=== PATIENT | female | born 1975 | race Caucasian/White ===

== ENCOUNTER 2016-11-01 07:09 | Emergency (ER) | payer BC, OTHER ==
--- NOTE | 2016-11-01 07:27 | UC ---
Respiratory Complaint HPI - HPI Summary HPI Summary: Two days of sinus pressure, sore throat and last night she lost her voice. Today she can barely talk. - History of Current Complaint Stated Complaint: FEVER SORE THROAT Time Seen by Provider: 11/01/16 07:16 Hx Obtained From: Patient Hx Last Menstrual Period: ~2011 ?: No Onset/Duration: Gradual Onset Timing: Constant Severity Initially: Mild Severity Currently: Moderate Character: Cough: Nonproductive Aggravating Factors: Nothing Alleviating Factors: Nothing Associated Signs And Symptoms: Positive: Fever, URI, Nasal Congestion, Hoarseness, Sinus Discomfort. Negative: Chills, Pleuritic Chest Pain, Wheezing , Hemoptysis, Dizziness, Calf Pain, Calf Swelling, Edema - Allergies/Home Medications Allergies/Adverse Reactions: Allergies Allergy/AdvReac Type Severity Reaction Status Date / Time sun Allergy Intermediate Hives Uncoded 09/05/14 17:45 PMH/Surg Hx/FS Hx/Imm Hx Endocrine History Of: Reports: Diabetes - DIET CONTROLLED Respiratory History Of: Denies: COPD, Asthma - Surgical History Surgical History: Yes Surgery Procedure, Year, and Place: GASTRIC BYPASS, BLADDER SLING, RIGHT ANKLE SURGERY, BUNOINECTOMY, TUBAL LIGATION. LITHOTRIPSY. ablation - Family History Known Family History: Positive: Other - no related laryngitis family history. - Social History Occupation: Employed Full-time Alcohol Use: Rare Substance Use Type: None Smoking Status (MU): Never Smoked Tobacco - Immunization History Most Recent Influenza Vaccination: April 2014 Review of Systems All Other Systems Reviewed And Are Negative: Yes Physical Exam Triage Information Reviewed: Yes Appearance: Well-Appearing - obvious loss of voice and trouble swallowing but non toxic., No Pain Distress, Well-Nourished Vital Signs Reviewed: Yes Eyes: Positive: Conjunctiva Clear. Negative: Conjunctiva Inflamed ENT: Positive: Normal ENT inspection, Hearing grossly normal, Pharyngeal erythema, Nasal congestion, TMs normal. Negative: Nasal drainage, TM bulging, TM dull, TM red, Tonsillar swelling, Tonsillar exudate, Trismus, Muffled/hoarse voice Neck exam: Normal Neck: Positive: Supple, Nontender, No Lymphadenopathy. Negative: Nuchal Rigidity Respiratory: Positive: Chest non-tender, Lungs clear, Normal breath sounds, No respiratory distress, No accessory muscle use. Negative: Respiratory distress, Decreased breath sounds, Accessory muscle use, Crackles, Rhonchi, Stridor, Wheezing Cardiovascular: Positive: RRR, No Murmur, Pulses Normal Abdominal Exam: Normal Abdomen Description: Positive: Nontender, No Organomegaly, Soft Musculoskeletal Exam: Normal Musculoskeletal: Positive: Strength Intact, ROM Intact, No Edema Neurological Exam: Normal Neurological: Positive: Alert, Muscle Tone Normal. Negative: Fatigued Psychological Exam: Normal Skin Exam: Normal Skin: Negative: rashes Respiratory Course/Dx - Differential Dx/Diagnosis Provider Diagnoses: viral laryngitis. Discharge - Discharge Plan Condition: Good Disposition: HOME Patient Education Materials: Laryngitis (ED) Forms: *Work Release Referrals: Agus Reyes MD [Primary Care Provider] - If Needed
[2016-11-01 07:38] VITALS: BP 126/72
== END 2016-11-01 08:00 | disposition home or self-care (01) ==
LOC: UCCORT 07:09
DX: J04.0 Acute laryngitis (principal); R50.9 Fever, unspecified; E11.9 Type 2 diabetes mellitus without complications; Z98.84 Bariatric surgery status
CPT/HCPCS: 99211; G0463

== ENCOUNTER 2018-10-08 10:52 | Emergency (ER) | payer OTHER ==
[2018-10-08 11:40] VITALS: BP 143/84
--- NOTE | 2018-10-08 12:27 | ED ---
Back Pain - HPI Summary HPI Summary: 42 yr old female with the complaint of low back pain. The patient works as an OR nurse, and on 10/05/18 she lifted an OR tray for a spine case. She states she felt pain in her low back with radiation of pain into her bilateral anterior thighs. The patient denies bowel or bladder incontinence. She denies weakness or numbness in the legs. - History of Current Complaint Chief Complaint: UCBackPain Stated Complaint: BACK INJURY - W/C Time Seen by Provider: 10/08/18 11:52 Hx Last Menstrual Period: 2010 Pain Intensity: 0 - Allergies/Home Medications Allergies/Adverse Reactions: Allergies Allergy/AdvReac Type Severity Reaction Status Date / Time sun Allergy Intermediate Hives Uncoded 11/01/16 07:27 Home Medications: Home Medications Acetaminophen [Acetaminophen Extra Strength] 500 mg PO DAILY PRN 10/08/18 [ History Confirmed 10/08/18] Naproxen TAB* [Naprosyn 250 mg TAB*] 220 mg PO Q12H PRN 10/08/18 [History Confirmed 10/08/18] PMH/Surg Hx/FS Hx/Imm Hx Endocrine/Hematology History: Reports: Hx Diabetes - DIET CONTROLLED Respiratory History: Denies: Hx Asthma, Hx Chronic Obstructive Pulmonary Disease (COPD) - Surgical History Surgery Procedure, Year, and Place: GASTRIC BYPASS, BLADDER SLING, RIGHT ANKLE SURGERY, BUNIONECTOMY, TUBAL LIGATION. LITHOTRIPSY. uterine ablation Infectious Disease History: No Infectious Disease History: Denies: Traveled Outside the [place] in Last 30 Days - Family History Known Family History: Positive: Other - no related laryngitis family history. - Social History Occupation: Employed Full-time Alcohol Use: Rare Substance Use Type: Reports: None Smoking Status (MU): Never Smoked Tobacco Review of Systems Constitutional: Negative Positive: Other - back pain Negative: Weakness, Paresthesia, Numbness All Other Systems Reviewed And Are Negative: Yes Physical Exam Triage Information Reviewed: Yes Vital Signs On Initial Exam: Initial Vitals Temp Pulse Resp BP Pulse Ox 98.6 F 69 18 143/84 97 10/08/18 11:32 10/08/18 11:32 10/08/18 11:32 10/08/18 11:32 10/08/18 11:32 Vital Signs Reviewed: Yes Appearance: Positive: Well-Appearing, No Pain Distress Skin: Positive: Warm, Skin Color Reflects Adequate Perfusion Head/Face: Positive: Normal Head/Face Inspection Eyes: Positive: EOMI ENT: Positive: Normal ENT inspection Neck: Positive: Nontender Respiratory/Lung Sounds: Positive: Clear to Auscultation, Breath Sounds Present Cardiovascular: Positive: RRR. Negative: Murmur Abdomen Description: Negative: Distended Musculoskeletal: Positive: Strength/ROM Intact, Other - some midline lumbar spine tenderness. Neurological: Positive: Sensory/Motor Intact, Alert, Oriented to Person Place, Time, CN Intact II-III, Speech Normal Psychiatric: Positive: Normal - Magalis Coma Scale Best Eye Response: 4 - Spontaneous Best Motor Response: 6 - Obeys Commands Best Verbal Response: 5 - Oriented Coma Scale Total: 15 Diagnostics - Vital Signs Vital Signs Temp Pulse Resp BP Pulse Ox 10/08/18 11:32 98.6 F 69 18 143/84 97 - Laboratory Lab Statement: Any lab studies that have been ordered have been reviewed, and results considered in the medical decision making process. - Radiology lumbar spine Radiology Interpretation Completed By: Radiologist - NATE, nephrolithiasis left Back Pain Course/Dx - Course Course Of Treatment: 42 yr old with low back pain. - Diagnoses Provider Diagnoses: Degenerative disc disease, lumbar, Hypertension Discharge - Sign-Out/Discharge Documenting (check all that apply): Patient Departure All imaging exams completed and their final reports reviewed: Yes - Discharge Plan Condition: Good Disposition: HOME Prescriptions: Cyclobenzaprine TAB* [Flexeril 10 MG TAB*] 10 mg PO BID PRN #14 tab PRN Reason: Spasms Patient Education Materials: Arthritis (ED) Forms: *Work Release Referrals: Rik Garza MD [Primary Care Provider] - Kael Mccray MD [Medical Doctor] - 2 Days - Billing Disposition and Condition Condition: GOOD Disposition: Home
== END 2018-10-08 13:00 | disposition home or self-care (01) ==
LOC: UCCORT 10:52
DX: M51.36 Other intervertebral disc degeneration, lumbar region (principal); I10 Essential (primary) hypertension; E11.9 Type 2 diabetes mellitus without complications; Z91.09 Other allergy status, other than to drugs and biological substances
CPT/HCPCS: 72110; 99211; G0463